=== PATIENT | female | born 1940 | race Caucasian/White ===

== ENCOUNTER → 2016-10-15 | Outpatient (CLI) | payer MEDICARE ==
[~2016-10-15] MED LIST: AMLO2.5T PO; ASPI-515 PO; CALC200T20 PO; DIPH1TAB PO; LOSA1TAB17 PO; NABU750T PO; SIMV20TA3 PO; iron PO
== END | disposition home or self-care (01) ==
LOC: CVU 11:26
PROVIDERS: ATTEND Internal Medicine Cardiovascular Disease
DX: I08.0 Rheumatic disorders of both mitral and aortic valves (principal); I37.1 Nonrheumatic pulmonary valve insufficiency; I65.23 Occlusion and stenosis of bilateral carotid arteries; R91.8 Other nonspecific abnormal finding of lung field
CPT/HCPCS: 93306; 93880

== ENCOUNTER → 2018-05-11 | Outpatient (CLI) | payer MEDICARE ==
[~2018-05-11] MED LIST changes: -AMLO2.5T PO; +AMLO2.5T3 PO; -LOSA1TAB17 PO; +LOSA1TAB22 PO
== END | disposition home or self-care (01) ==
LOC: CVU 13:46
PROVIDERS: ATTEND Internal Medicine Cardiovascular Disease
DX: I65.23 Occlusion and stenosis of bilateral carotid arteries (principal); I08.0 Rheumatic disorders of both mitral and aortic valves; I10 Essential (primary) hypertension
CPT/HCPCS: 0399T; 93306; 93880

== ENCOUNTER 2020-02-20 12:46 | Emergency (ER) | payer MEDICARE ==
[~2020-02-20] VITALS: Ht 154.9 cm; Wt 47.0 kg
[~2020-02-20 12:46] MED LIST changes: -AMLO2.5T3 PO; +AMLO2.5T5 PO; +SIMV20TA19 PO; -SIMV20TA3 PO
--- NOTE | 2020-02-20 13:12 | NUR ---
XRAY AT BEDSIDE.
--- NOTE | 2020-02-20 13:23 | NUR ---
PT C/O DIZZINESS AND SOB X2 DAYS WHEN LAYING DOWN REPORTS DIZZINESS SUBSIDES SHE SITS UP. PLACED ON CARDIAC AND VITALS MONITORS, FALL PRECAUTIONS IN PLACE. CALL LIGHT WITHIN REACH.
[2020-02-20 13:38] LABS: ALANINE AMINOTRANSFERASE 25 U/L (12-78); ALBUMIN 4.2 g/dL (3.4-5.0); ANION GAP 7 mmol/L (5-15); CALCIUM 9.2 mg/dL (8.5-10.1); CHLORIDE 106 mmol/L (98-107); CREATININE 0.85 mg/dL (0.55-1.02)
[2020-02-20 13:42] LABS: ALKALINE PHOSPHATASE 66 U/L (45-117); BILIRUBIN,TOTAL 0.9 mg/dL (0.2-1.0); TOTAL PROTEIN 7.3 g/dL (6.4-8.2); TROPONIN I < 0.015 ng/mL (0.000-0.045)
[2020-02-20 13:45] LABS: MEAN CORPUSCULAR HEMOGLOBIN 19.2 pg (27.0-34.8); MEAN CORPUSCULAR HGB CONC 30.3 g/dL (32.4-35.8); MEAN CORPUSCULAR VOLUME 63.3 fL (80-100); MEAN PLATELET VOLUME 8.6 fL (7.4-10.4); PLATELET COUNT 222 x10^3/uL (130-400); RED BLOOD COUNT 5.54 x10^6/uL (3.82-5.3); RED CELL DISTRIBUTION WIDTH 17.1 % (9.6-15.2)
--- NOTE | 2020-02-20 13:59 | NUR ---
REPORT GIVEN TO ENDER BOYD.
[2020-02-20] MEDS ORDERED: MECLIZINE CHEWABLE 25 MG TAB PO ONE (14:00)
[2020-02-20] MEDS ORDERED: MECLIZINE CHEWABLE 25 MG TAB ONE (14:10)
--- NOTE | 2020-02-20 14:14 | NUR ---
FIRST CONTACT WITH PT, STILL REPORTS DIZZY FEELING. VSS, RR EQUAL AND UNLABORED. MEDICATED PER ORDER. AIDET PROVIDED. CALL LIGHT IN REACH.
[2020-02-20 14:24] LABS: ANISOCYTOSIS 1+; BASOPHILS # (AUTO) 0.04 x10^3/uL (0-0.1); BASOPHILS % (AUTO) 1 % (0-1); EOSINOPHILS # (AUTO) 0.02 x10^3/uL (0-0.4); EOSINOPHILS % (AUTO) 0 % (1-7); LYMPHOCYTES # (AUTO) 1.03 x10^3/uL (1-3.4); LYMPHOCYTES % (AUTO) 16 % (22-44); MD MORPH REVIEW ONLY; MICROCYTOSIS 2+; MONOCYTES # (AUTO) 0.25 x10^3/uL (0.2-0.8); MONOCYTES % (AUTO) 4 % (2-9); NEUTROPHILS # (AUTO) 5.27 x10^3/uL (1.8-6.8); NEUTROPHILS % (AUTO) 80 % (42-75)
[2020-02-20 14:25] LABS: HYPOCHROMIA 1+; OVALOCYTES 1+
[2020-02-20 14:26] LABS: SCHISTOCYTES 1+; TEAR DROPS 1+
[2020-02-20 14:27] LABS: POLYCHROMASIA 1+
[2020-02-20 14:29] LABS: <PLATELET ESTIMATE> ADEQUATE; <PLT MORPHOLOGY> NORMAL PLT MORPH
[2020-02-20 14:32] LABS: BASOPHILLIC STIPPLING 1+
[2020-02-20 14:50] VITALS: BP 154/64
--- NOTE | 2020-02-20 15:05 | NUR ---
RE-EVAL PT REPORTS SLIGHT DECREASE IN DIZZINESS WHEN SITS BACK, SUPINE REPORTS SMALL AMOUNT OF IMPROVEMENT. PT REPORTS HX OF EAR TUBE PLACED YEARS AGO.
--- NOTE | 2020-02-20 16:20 | NUR ---
ROAD TEST UP TO BATHROOM, READY TO GO.
== END 2020-02-20 17:00 | disposition home or self-care (01) ==
LOC: ED 13:55
DX: R42 Dizziness and giddiness (principal); R06.02 Shortness of breath; R11.0 Nausea; R51 Headache; I10 Essential (primary) hypertension; E78.00 Pure hypercholesterolemia, unspecified; Z87.891 Personal history of nicotine dependence
CPT/HCPCS: 36415; 70450; 71045; 80053; 83880; 84484; 85025; 85379; 93005; 99285

== ENCOUNTER → 2020-03-13 | Outpatient (CLI) | payer MEDICARE | END | disposition home or self-care (01) | LOC: CFH 12:40 | PROVIDERS: ATTEND Family Medicine | DX: R92.1 Mammographic calcification found on diagnostic imaging of breast (principal) | CPT/HCPCS: 77066; G0279 ==

== ENCOUNTER → 2020-05-15 | Outpatient (CLI) | payer MEDICARE ==
[~2020-05-15] MED LIST changes: -NABU750T PO; +NABU750T7 PO
== END | disposition home or self-care (01) ==
LOC: CVU 08:18
PROVIDERS: ATTEND Internal Medicine Cardiovascular Disease
DX: I08.0 Rheumatic disorders of both mitral and aortic valves (principal); I65.23 Occlusion and stenosis of bilateral carotid arteries
CPT/HCPCS: 93306; 93356; 93880